=== PATIENT | female | born 1995 | race Caucasian/White ===

== ENCOUNTER → 2019-07-09 11:43 | Outpatient (CLI) | payer SELFPAY ==
--- NOTE | 2019-07-09 11:48 | US_ITS ---
STUDY: FIRST TRIMESTER OBSTETRICAL ULTRASOUND REASON FOR EXAM: Female, 23 years old EARLY PREG LMP: May 03, 2019. TECHNIQUE: Transvaginal TECHNICAL QUALITY: Adequate. PRIOR ULTRASOUND: None. FINDINGS: There is visualization of a single gestational sac in a normal intrauterine position. The mean sac diameter (MSD) measures 3.3 cm, indicating an estimated gestational age (EGA) of 9 weeks, 4 days. The gestational sac shape is within normal limits. There is a visualized yolk sac. The yolk sac measures 4 mm. The placenta is non-visualized. There is visualization of an embryo with no cardiac activity, consistent with intrauterine demise. The crown-rump length (CRL) measures 2.43 cm, indicating an estimated gestational age (EGA) of 9 weeks, 2 days. The estimated gestation age (EGA) by LMP is 9 weeks, 2 days. The estimated date of delivery (CHANEL) by LMP is February 07, 2020. The estimated gestation age (EGA) by US is 9 weeks, 0 days. The estimated date of delivery (CHANEL) by US is February 11, 2020. The uterus measures 8.5 cm x 6.6 cm x 6.5 cm. There is no demonstrated uterine fibroid. The cervix is closed. The right ovary measures 3.6 cm x 2.6 cm x 1.7 cm. There is no right ovarian cyst. There is no visualized right adnexal mass or complex lesion. The left ovary measures 3.6 cm x 2.1 cm x 2.4 cm.. There is no left ovarian cyst. There is no visualized left adnexal mass or complex lesion. There is no fluid in the cul de sac. US/Transvaginal w/Preg US IMPRESSION: demise. Electronically Signed: Angel Odom, at 13:14 EST , Service support ,
== END ==
PROVIDERS: PCP Nurse Practitioner Family; Referring Provider Obstetrics & Gynecology; Visit Provider Obstetrics & Gynecology
DX: Z34.90 Encounter for supervision of normal pregnancy, unspecified, unspecified trimester (principal)
CPT/HCPCS: 76817

== ENCOUNTER → 2021-02-01 14:40 | Outpatient (CLI) | payer SELFPAY | PROVIDERS: PCP Nurse Practitioner Family; Referring Provider Nurse Practitioner Women's Health; Visit Provider Nurse Practitioner Women's Health | DX: Z01.810 Encounter for preprocedural cardiovascular examination (principal) | CPT/HCPCS: 36415; 86850; 86900; 86901 ==

== ENCOUNTER → 2021-02-11 | Outpatient (CLI) | payer SELFPAY | END | disposition home or self-care (01) | LOC: LABSPEC 17:10 | PROVIDERS: PCP Nurse Practitioner Family; Referring Provider Obstetrics & Gynecology; Visit Provider Obstetrics & Gynecology | DX: Z34.80 Encounter for supervision of other normal pregnancy, unspecified trimester (principal) | CPT/HCPCS: 87086; 87088 ==

== ENCOUNTER → 2021-03-08 11:38 | Outpatient (CLI) | payer SELFPAY ==
[2021-03-08 11:55] LABS: Absolute Lymphocyte Count 1.47 X10^3/uL (0.83-4.51); Absolute Neutrophil Count 5.6 X10^3/uL (2.0-7.7); Basophil# 0.04 X10^3/uL; Basophil% 0.5 % (0-1); Eosinophil# 0.04 X10^3/uL; Eosinophils% 0.5 % (0-5); Hematocrit 36.7 % (37-47); Hemoglobin 12.2 g/dL (12.0-15.0); Lymphocyte # 1.47 X10^3/ul (0.83-4.51); Lymphocyte % 19.2 % (19-41); Mean Corp Hgb Conc 33.2 g/dL (32-36); Mean Corpuscular Hgb 30.2 pg (27.0-32.0); Mean Corpuscular Volume 90.8 fL (81-99); Mean Platelet Vol. 9.8 fl (6.2-12.0); Monocyte# 0.46 X10^3/uL; NRBC Flagged by Analyzer 0 % (0-5); Neutrophil # 5.62 X10^3/uL (2.7-7.7); Neutrophil % 73.5 % (47-70); Platelet Count 218 K/mm3 (150-450); RBC Distribution Width SD 39.9 fl (35.1-43.9); Red Blood Count 4.04 M/mm3 (4.2-5.4); White Blood Count 7.7 K/mm3 (4.4-11.0)
== END ==
PROVIDERS: PCP Nurse Practitioner Family; Referring Provider Obstetrics & Gynecology; Visit Provider Obstetrics & Gynecology
DX: Z34.80 Encounter for supervision of other normal pregnancy, unspecified trimester (principal)
CPT/HCPCS: 36415; 85025; 86850; 86870; 86900; 86901

== ENCOUNTER → 2021-05-10 13:54 | Outpatient (CLI) | payer SELFPAY ==
--- NOTE | 2021-05-10 13:55 | US_ITS ---
STUDY: SECOND AND THIRD TRIMESTER OBSTETRICAL ULTRASOUND REASON FOR EXAM: Female, 25 years old anatomy LMP: 12/06/2020. TECHNIQUE: Transabdominal and Transvaginal TECHNICAL QUALITY: Adequate. PRIOR ULTRASOUND: None. FINDINGS: There is a single intrauterine fetus. The fetus is in a transverse lie with the head on the maternal right side. There is demonstrated cardiac activity with a heart rate of 143 bpm. There is a normal amniotic fluid volume. The largest amniotic fluid pocket measures 4 cm x 3.7 cm. The amniotic fluid index (ALYSSA) is within normal limits. The placenta is posterior and fundal in location and is not low lying. There are Grade 0 placental changes. The cervix measures 3.5 cm in length. The bilateral adnexal regions are normal. BIOMETRY: BPD: 5.3 cm: 22 weeks, 0 days HC: 19.9 cm: 22 weeks, 0 days AC: 18.3 cm: 23 weeks, 0 days FL: 3.8 cm: 22 weeks, 0 days CI: 77% FL/BPD: 71% FL/HC: FL/AC: 21% HC/AC: 1.09 age by current US: 22 weeks, 0 days. CHANEL by current US: 09/13/2021. Estimated weight: 521 grams, +/- 78 grams, 68 %. Age by LMP: 22 weeks, 1 days. CHANEL by LMP: 09/12/2021. ANATOMY: Gender: Indeterminant Cranium: Normal lateral ventricles. Normal choroid plexus. Normal cerebellum. Normal cisterna magna. Normal face, nose and lips. Chest: Normal 4-chamber heart. Abdomen/Pelvis: Normal diaphragm. Normal stomach. Normal abdominal wall. Normal cord insertion. Normal 3 vessel cord. Normal kidneys. Normal bladder. Spine: Normal cervical spine. Normal thoracic spine. Normal lumbar spine. Normal sacrum. Extremities: Normal bilateral upper extremities. Normal bilateral lower extremities. IMPRESSION: Single live intrauterine gestation with a mean gestational age of 22 weeks. Electronically Signed: Angel Odom MD at 15:07 EST , Service support , STUDY: FIRST TRIMESTER OBSTETRICAL ULTRASOUND REASON FOR EXAM: Female, 25 years old. Cervical length measurement. LMP: 12/06/2020 TECHNIQUE: Transvaginal TECHNICAL QUALITY: Adequate. PRIOR ULTRASOUND: None. FINDINGS: Cervical length measures 3.5 cm. US/OB Anatomy Scan IMPRESSION: Cervical length measures 3.5 cm. Electronically Signed: Angel Odom MD at 15:07 EST , Service support ,
== END ==
PROVIDERS: PCP Nurse Practitioner Family; Referring Provider Nurse Practitioner Women's Health; Visit Provider Nurse Practitioner Women's Health
DX: Z36.89 Encounter for other specified antenatal screening (principal)
CPT/HCPCS: 76805; 76817

== ENCOUNTER 2021-07-01 13:14 | Outpatient (CLI) | payer SELFPAY ==
[2021-07-01 13:52] LABS: Absolute Lymphocyte Count 1.54 X10^3/uL (0.83-4.51); Absolute Neutrophil Count 7.3 X10^3/uL (2.0-7.7); Basophil# 0.03 X10^3/uL; Basophil% 0.3 % (0-1); Eosinophil# 0.06 X10^3/uL; Eosinophils% 0.6 % (0-5); Hematocrit 31.6 % (37-47); Hemoglobin 10.8 g/dL (12.0-15.0); Lymphocyte # 1.54 X10^3/ul (0.83-4.51); Mean Corp Hgb Conc 34.2 g/dL (32-36); Mean Corpuscular Volume 93.8 fL (81-99); Mean Platelet Vol. 9.6 fl (6.2-12.0); Monocyte# 0.62 X10^3/uL; Monocyte% 6.4 % (0-10); NRBC Flagged by Analyzer 0 % (0-5); Neutrophil % 75.8 % (47-70); Platelet Count 220 K/mm3 (150-450); RBC Distribution Width SD 44.1 fl (35.1-43.9); Red Blood Count 3.37 M/mm3 (4.2-5.4); White Blood Count 9.6 K/mm3 (4.4-11.0)
[2021-07-01 14:22] LABS: Glucose Challenge Gest 1H 50g 94 mg/dL (70-140)
== END 2021-07-01 23:59 | disposition short-term general hospital (02) ==
LOC: LAB 13:18
PROVIDERS: PCP Nurse Practitioner Family; Referring Provider Nurse Practitioner Women's Health; Visit Provider Nurse Practitioner Women's Health
DX: Z13.1 Encounter for screening for diabetes mellitus (principal); O99.013 Anemia complicating pregnancy, third trimester; Z3A.28 28 weeks gestation of pregnancy
CPT/HCPCS: 36415; 82950; 85025; 86850; 86900; 86901

== ENCOUNTER 2021-08-19 16:26 | Outpatient (CLI) | payer SELFPAY | END 2021-08-19 23:59 | disposition home or self-care (01) | LOC: LABSPEC 16:27 | PROVIDERS: PCP Nurse Practitioner Family; Visit Provider Obstetrics & Gynecology | DX: Z34.93 Encounter for supervision of normal pregnancy, unspecified, third trimester (principal); Z3A.35 35 weeks gestation of pregnancy | CPT/HCPCS: 87081 ==

== ENCOUNTER 2021-09-07 05:10 | Inpatient (IN) | payer SELFPAY ==
[2021-09-07] VITALS (27 sets, daily range): BP systolic 95–125; BP diastolic 42–74; PULSE 67–108; RESP 15–18; TEMP 35.6–37; O2SAT 97–100; BMI 26.5
[2021-09-07] MEDS: Lactated Ringers 1,000 ML 999 ML IV (05:30)
[2021-09-07] MEDS: Acetaminophen 500 MG Tablet 1000 MG PO ×2 (05:43→19:03)
[2021-09-07 05:58] LABS: Absolute Lymphocyte Count 1.82 X10^3/uL (0.83-4.51); Absolute Neutrophil Count 7.5 X10^3/uL (2.0-7.7); Basophil# 0.04 X10^3/uL; Basophil% 0.4 % (0-1); Eosinophil# 0.09 X10^3/uL; Eosinophils% 0.9 % (0-5); Hematocrit 32.9 % (37-47); Hemoglobin 11.1 g/dL (12.0-15.0); Lymphocyte # 1.82 X10^3/ul (0.83-4.51); Lymphocyte % 17.7 % (19-41); Mean Corp Hgb Conc 33.7 g/dL (32-36); Mean Corpuscular Volume 91.9 fL (81-99); Mean Platelet Vol. 10.3 fl (6.2-12.0); Monocyte# 0.68 X10^3/uL; Monocyte% 6.6 % (0-10); NRBC Flagged by Analyzer 0 % (0-5); Neutrophil # 7.49 X10^3/uL (2.7-7.7); Neutrophil % 72.9 % (47-70); Platelet Count 185 K/mm3 (150-450); RBC Distribution Width SD 43.1 fl (35.1-43.9); Red Blood Count 3.58 M/mm3 (4.2-5.4); White Blood Count 10.3 K/mm3 (4.4-11.0)
[2021-09-07] MEDS: Lactated Ringers 1,000 ML 150 ML IV (06:40)
[2021-09-07 07:00] LABS: Bacteria 0 SEEN /hpf (None Seen); Mucous, Urine 0 SEEN /hpf (<or=2+); Red Blood Cells-Urine 0 SEEN /hpf (0-5)
[2021-09-07] MEDS: Sodium Citrate/Citric Acid 30 ML UDC PO (07:06)
[2021-09-07 07:10] LABS: Color, Urine Yellow (Yellow); Glucose, Dipstick Normal (Normal); Ketone-Dipstick Negative (Negative); Leukocyte Esterase-Dipstick 500 /ul (Negative); Nitrite-Dipstick Negative (Negative); Occult Blood-Urine Negative /ul (Negative); Protein-Dipstick Negative (Negative); Specific Gravity, Urine 1.005 (1.002-1.030); Urine Bilirubin Dipstick Negative (Negative); Urine Clarity Clear (Clear); Urine Urobilinogen Normal (Normal)
[2021-09-07 07:20] LABS: Squamous Epithelial Cells - UA 0-5 SEEN /hpf (5-10); White Blood Cells 0-5 SEEN /hpf (0-5)
--- NOTE | 2021-09-07 07:25 | HP.PCM.OB_ITS ---
HPI - General General Date of Admission: 09/07/21 HPI Narrative TUSHAR ALVAREZ, is a 25 y/o @ 39 weeks 2 days who presents for a repeat section Maternal Data Information CHANEL Calculator Estimated Delivery Date Method Current WG Current Estimate 09/12/21 LMP (Certain) 39w 2d PFSH PFSH Medical History Missed Home Medications multivitamin no.47-iron fum 27 mg-folate no.1 1 mg-dha 300 mg capsule 1 cap PO DAILY 01/27/21 [History Last Taken 09/06/21] Allergy/AdvReac Type Severity Reaction Status Date / Time No Known Allergies Allergy Verified 09/02/21 13:37 Surgical History H/O section Social History adopted: No household members: family housing: house number of children: 1 history of recent travel: No sexually active: Yes Smoking Status: Never smoker second hand exposure: No alcohol intake: never substance use type: does not use seatbelt use: always do you feel safe at home: Yes additional social history: - Kareem History 3 Elective abortions Hx Para 1 Spontaneous abortions 1 Hx # Term Pregnancies Ectopic pregnancies Hx # Pregnancies Multiple births # of living children 1 Past Pregnancies Del. Date Name GA/Weeks Outcome Route Bth Weight Gen Labor Lgth Anesthesia Del Locatn Provider FOB 11/13/17 Pham 40 live - full term 8lbs 1.5oz [place] [facility] [place]: 11/13/17 failed VAVD, decels CPD Brianna Overton Visit Details Expected Delivery Route/Plan plan RLTCS with SM Plans Covid status: counseled regarding risk of covid in vs vaccination and declined vaccination Flu vaccine: declined Tdap vaccine: declined Rhogam: given 2/4 LARC form signed: [] movement and labor precautions reviewed. Problem list reviewed and updated with the most current plan of care details and appropriate orders placed. Relevant counseling for the gestational age provided. Continue routine care and follow up unless otherwise noted in visit notes/problem list details OB Flowsheet Initial Weight: 122 lb Date -?-?-?-?-?-?-?-?-?-?-?-?- EGA Weight BP Urine Prot -?-?-?-?-?-?-?-?-?-?-?-?- Glucose FHR FuHt Pres Dilation -?-?-?-?-?-?-?-?-?-?-?-?- Effaced St Visit Note 02/11/21 -?-?-?-?-?-?-?-?-?-?-?-?- 9w 4d 122 lb (+0 oz) 102/64 -?-?-?-?-?-?-?-?-?-?-?--?- 190 -?-?-?-?-?-?-?-?-?-?-?-?- SM- no vb crampi ng, resolved last week. 03/08/21 -?-?-?-?-?-?-?-?-?-?-?-?- 13w 1d 120/82 -?-?-?-?-?-?-?-?-?-?-?-?- 175 -?-?-?-?-?-?-?-?-?-?-?-?- SM- no vb crampi ng doing well 04/05/21 -?-?-?-?-?-?-?-?-?-?-?-?- 17w 1d 127 lb (+5 lb) 114/78 Negative -?-?-?-?-?-?-?-?-?-?-?-?- Negative 157 -?-?-?-?-?-?-?-?-?-?-?-?- MH-No VB, LOF. A natomy [facility] [place] ordered 05/10/21 -?-?-?-?-?-?-?-?-?-?-?-?- 22w 1d 130 lb 4 oz (+8 lb 4 oz) 104/62 Negative -?-?-?-?-?-?-?-?-?-?-?-?- Negative 151 -?-?-?-?-?-?-?-?-?-?-?-?- -No Vb, LOF. G ood FM. Had anatomy US today. 07/01/21 -?-?-?-?-?-?-?-?-?-?-?-?- 29w 4d 140 lb 2 oz (+18 lb 2 oz) 130/70 Negative -?-?-?-?-?-?-?-?-?-?-?-?- Negative 1 -?-?-?-?-?-?-?-?-?-?-?-?- SM- no vb lof go od fm no regular ctx 07/22/21 -?-?-?-?-?-?-?-?-?-?-?-?- 32w 4d 145 lb 2 oz (+23 lb 2 oz) 112/62 Negative -?-?-?-?-?-?-?-?-?-?-?-?- Negative 143 30 -?-?-?-?-?-?-?-?-?-?-?-?- JV- no lof, vagi nal bleeding or dec fm. plan for 39 week IOL on september 07 at 7:30. 08/05/21 -?-?-?-?-?-?-?-?-?-?-?-?- 34w 4d 148 lb 4 oz (+26 lb 4 oz) 116/60 Negative -?-?-?-?-?-?-?-?-?-?-?-?- Negative 145 33 -?-?-?-?-?-?-?-?-?-?-?-?- JV- no lof, vagi nal bleeding, or dec fm -- ABOVE NOTE INCORRECT. PLANNING FOR REPEAT SECTION NOT IOL. 08/12/21 -?-?-?-?-?-?-?-?-?-?-?-?- 35w 4d 148 lb 8 oz (+26 lb 8 oz) 110/66 Negative -?-?-?-?-?-?-?-?-?-?-?-?- Negative 160 36 -?-?-?-?-?-?-?-?-?-?-?-?- JV- no complaint s today. no lof, vaginal bleeding, or dec fm. Plan for rpt section 08/19/21 -?-?-?-?-?-?-?-?-?-?-?-?- 36w 4d 151 lb 4 oz (+29 lb 4 oz) 106/64 Negative -?-?-?-?-?-?-?-?-?-?-?-?- Negative 135 37 1 -?-?-?-?-?-?-?-?-?-?-?-?- 70 -2 SM- no vb lof good fm no reuglar ctx 08/26/21 -?-?-?-?-?-?-?-?-?-?-?-?- 37w 4d 153 lb (+31 lb) 110/88 Negative -?-?-?-?-?-?-?-?-?-?-?-?- Negative 145 38 -?-?-?-?-?-?-?-?-?-?-?-?- JV- no lof ,vagi nal bleeding or dec fm. declines pelvic exam. 09/02/21 -?-?-?-?-?-?-?-?-?-?-?-?- 38w 4d 155 lb 6 oz (+33 lb 6 oz) 118/68 Negative -?-?-?-?-?-?-?-?-?-?-?-?- Negative 140 38 -?-?-?-?-?-?-?-?-?-?-?-?- JV- no lof, vagi nal bleeding, or dec fm. rpt section on sunday09/07/21 -?-?-?-?-?-?-?-?-?-?-?-?- 39w 2d 154 lb 12.232 oz (+32 lb 12.232 oz) 119/74 119/74 Negative mg/dl (Nega tive) -?-?-?-?-?-?-?-?-?-?-?-?- -?-?-?-?-?-?-?-?-?-?-?-?- ROS Constitutional Constitutional: Denies change in weight, fatigue, fever(s), headache(s), poor appetite or weakness Eyes Eyes: Denies blurry vision, change in vision, seeing flashes or spots in vision ENT HEENT: Denies dizziness, headache(s), loss taste/smell or sore throat Cardiovascular Cardiovascular: Denies chest pain, dizziness, dyspnea, irregular heart rhythm, leg edema, palpitations, rapid heart rate or vomiting Respiratory/Chest Respiratory/Chest: Denies chest tightness, cough, dyspnea or breast pain Gastrointestinal Gastrointestinal: Denies abdominal pain, anorexia, constipation, cramping, diarrhea, hemorrhoids, vomiting or weight changes Genitourinary Genitourinary: Denies dysuria, flank pain, genital lesions, genital pain, urinary frequency or urinary urgency Musculoskeletal Musculoskeletal: Denies back pain, difficulty walking, joint pain, limited range of motion, muscle cramps or numbness Integumentary Integumentary: Denies lesions or unusual bruising Neurologic Neurologic: Denies abnormal movements, abnormal speech, dizziness, numbness, seizure-like activity or syncope Psychiatric Psychiatric: Denies anxiety, behavioral changes, change in appetite, change in libido, cognitive impairment, confusion, depression, difficulty concentrating, hallucinations or suicidal thoughts Endocrine Endocrinology: Denies excessive sweating, polydipsia or polyuria Hematologic/Lymphatic Hematologic/Lymphatic: Denies easy bleeding, easy bruising or lymphadenopathy Allergic/Immunologic Allergic/Immunologic: Denies itchy eyes, lip swelling, seasonal rhinorrhea, rhinitis, throat swelling, tongue swelling, eczemia, wheezing or asthma Vital Signs Vital Signs Vital Signs: 09/07/21 05:27 09/07/21 05:48 Temperature 97.3 F L 97.3 F L Temperature Source Temporal Temporal Pulse Rate 105 H 105 H Respiratory Rate 18 Blood Pressure 119/74 119/74 Blood Pressure Mean 89 BP Systolic 119 BP Diastolic 74 Blood Pressure Source Monitor Blood Pressure Position Semi-Fowlers Blood Pressure Location Left Arm Pulse Ox 100 100 Oxygen Delivery Method Room Air Weight Weight: 154 lb 12.232 oz Body Mass Index (BMI) 26.5 Physical Exam Const alert, oriented x3, no apparent distress and healthy appearing General Appearance: cooperative; Negative for anxious HEENT normocephalic Face and Sinus: normal facial exam Eyes EOMs intact bilaterally and no scleral icterus General Eye: normal appearance of both eyes Neck full ROM and supple Lymph Lymphatic: no lymphadenopathy noted Chest Chest: abnormal inspection of the chest Resp normal respiratory effort Effort and Inspection: able to speak in complete sentences Cardio regular rate GI soft to palpation and non-tender Inspection: gravid Palpation: soft; Negative for tender external exam normal Back/Spine no CVA tenderness Extremity normal to inspection, full ROM and no clubbing, cyanosis or edema General Extremity: Negative for calf tenderness or edema Skin Lesions: no lesions Rashes: no rashes Psych mental status grossly normal Labs Labs Labs: Blood Type AB NEGATIVE Antibody Screen NEGATIVE Hct 32.9 % (37-47) L Hgb 11.1 g/dL (12.0-15.0) L Obstetrics US Syphilis Total Ab Pending Rubella IgG Antibody Pending Hep Bs Antigen Pending HIV 1&2 Antibody Pending Glucose 1 Hr 50 gm 94 mg/dL (70-140) Assessment & Plan (1) Anemia affecting in third trimester: COMMENT: iron, repeat CBC PRN (2) Rh negative state in antepartum period: COMMENT: Rhogam PRN and at 28 weeks (rhogam was not given with previous miscarriage). Given 07/01/21 (3) Supervision of other normal : COMMENT: PRR(sp labs) CHANEL: 09/12/21 PC: Pham Spouse: Kareem gbs negative (4) : QUALIFIERS: Weeks of gestation: 38 weeks Qualified Code(s): Z3A.38 - 38 weeks gestation of COMMENT: declines carrier, genetic and NTD. SP labs, will draw rest at delivery. NL anatomy (5) H/O section: COMMENT: 2017 failure to descend, pushing x7 hrs, failed vacuum attempt with a popoff and FHR decel. [facility] scheduled 09/07 @ 7:30am PLAN: plan for repeat section today.
[2021-09-07] MEDS: Cefazolin 2 GM in 0.9% Normal Saline 100 ML IV (07:28)
[2021-09-07 07:29] LABS: Amphetamine Urine VISTA NEGATIVE (<1000 ng/mL); Barbiturate Urine VISTA NEGATIVE (< 200 ng/mL); Benzodiazepine Urine VISTA NEGATIVE (< 200 ng/mL); Cocaine Urine VISTA NEGATIVE (< 300 ng/mL); Ecstacy Urine VISTA NEGATIVE (< 500 ng/mL); Methadone Urine VISTA NEGATIVE (< 300 ng/mL); PCP Urine VISTA NEGATIVE (< 25 ng/mL); THC Urine VISTA NEGATIVE (< 50 ng/mL); Vista UDS pH Range 6
--- NOTE | 2021-09-07 07:29 | PCM.DC ---
Discharge Instructions Diet Discharge Diet: No restrictions Activity Discharge Activity: May Not Drive (for 2 weeks or while taking narcotic pain medications.), May Shower and May Take a Tub Bath (in 7 days.) May resume sexual activity in: 4-6 weeks Weight Bearing Status: Full weight bearing Lifting Restrictions: 20 pounds Dressing / Incision Call your doctor if your incision/area has: Continuous Slow Oozing, Sudden Increased Bleeding, Increased Pain/ Swelling, Increased Redness and Foul Smelling Discharge Call your doctor if you observe: Fever of 101 or Higher and Using more than 1 pad per hour Suture Line Care: Avoid Pulling/Pushing and Avoid Pinching/Bending Cleanse incision/area with: Soap & Water and Keep Dressing Clean & Dry Follow Up Care Please Follow Up With: Donna Rogers DO When: Call [phone] to make an appointment for an incision check in 1-2 weeks. Test Results: Test results from this visit will be discussed in further detail at your follow-up appointment, if applicable. Discharge Plan Admission Admit Date/Time: 09/07/21 05:10 Primary Reason for Your Visit: section Attending Provider: Donna Rogers Primary Care Provider: Andria Santos NP Discharge Orders/Prescriptions Prescriptions: New ibuprofen 600 mg tablet 600 mg PO Q6H PRN (Reason: pain (scale score 4-6)) 7 Days Qty: 28 RF: 0 oxycodone-acetaminophen [Percocet] 5-325 mg tablet 1 tab PO Q4H PRN (Reason: pain) 7 Days Qty: 30 RF: 0 Continued PNV-DHA 27 mg iron-1 mg -300 mg capsule 1 cap PO DAILY RF: 0 Referrals / Follow Up: Andria Santos NP, [facility] [Primary Care Provider] - Disposition Disposition (needs filled in before D/C Order can be placed): Home, Self Care
--- NOTE | 2021-09-07 08:19 | EX.PCM.OBRPT ---
Maternal Data Information CHANEL Calculator Estimated Delivery Date Method Current WG Current Estimate 09/12/21 LMP (Certain) 39w 2d Details Operative Information Date of Procedure: 09/07/21 Pre-Operative Diagnosis: 39 weeks , prior section, declines Post-Operative Diagnosis: 39 weeks , prior section, declines Indications for : Repeat Elective Classification: Scheduled Procedure Type: low transverse billboard mechanic #1: Dm Arango Type of Anesthesia: Spinal Anesthesiologist: Santino Quintana Antibiotic Given: Ancef 2 grams IV x1 Drain: Cordova to straight drain Estimated Blood Loss: 300cc Findings Description of Procedure: The patient is a 25 y/o @ 39 weeks 2 days who presented for repeat . Spinal anesthesia was placed without difficulty. Cordova catheter was placed. The patient was placed in the dorsal supine position with leftward tilt. Patient was prepped and draped in the normal sterile fashion. Pfannenstiel skin incision was made with the scalpel and carried through to the underlying layer of fascia with the scalpel. Fascia was nicked in the midline and the incision extended laterally. The rectus bellies were dissected off superiorly and inferiorly with out complication both sharply and bluntly. The peritoneum was entered digitally. The incision was stretched and a low transverse uterine incision was made with the scalpel. The infant's head was delivered atraumatically followed by the anterior and posterior shoulders without complication the rest of the delivered. The cord was clamped and cut and the infant was handed off to awaiting nurse. The placenta was delivered spontaneously immediately following and was noted to be intact and have a three-vessel cord. The uterus was exteriorized cleared of all clots and debris, and the incision was closed in a double layer closure using #1 Vicryl and #1 Monocryl. The ovaries and fallopian tubes were noted to be within normal limits. The uterus was returned to the maternal abdomen and gutters were cleared of all clots and debris. The peritoneum was closed with 3-0 Monocryl in a running fashion. Gloves were changed prior to subcutaneous tissue closure. Fascia was closed with 0 PDS in a running fashion. Subcutaneous tissue was copiously irrigated and the skin was closed with 3-0 Monocryl in a subcuticular fashion. Mepilex dressing was applied without complication. Patient was taken to recovery in stable condition. It was discussed with the patient that based on the clinical information obtained during this encounter, combined with her history, at this time I would recommend repeat sections for future deliveries if further pregnancies are desired. Presentation: Positive for Vertex Amniotic Fluid Description: Clear Placental Delivery Description: Manual Removal Placenta Disposition: [facility] Cord Vessel Description: 3 Vessels Cord Entanglement: None Infant A Gender: Male (1 minute): 9 (5 minute): 10 Delayed Cord Clamping: Yes Complications Risks of Surgery Discussed w/Patient: Bleeding, Anesthesia Risks, Infection and Need for Future C-Sections Complications: none Multi Select Codes Urinary/Genital Urinary/Genital CPT Codes: 01047 Delivery [facility]
[2021-09-07] MEDS: Oxytocin 30 units/NS 500 ml 30 UNITS/500 ML IV.SOLN 167 UNITS IV (08:30)
[2021-09-07] MEDS: Ketorolac 30 MG/ML Syringe IV ×3 (09:05→20:59)
[2021-09-07 09:17] LABS: Chlamydia Trachomatis by PCR Negative (Negative); Neisserai gonorrhoeae by PCR Negative (Negative)
[2021-09-07 09:18] LABS: Probe Check PASS; Sample Adequacy Control PASS; Specimen Processing Control PASS
[2021-09-07 09:40] LABS: Rubella IgG Reactive (Nonreactive); Syphilis Antibodies Non-reactive
[2021-09-07 09:51] LABS: HIV - WCH Non-Reactive (Nonreactive); Hepatitis B Surface Antigen Non-Reactive (Nonreactive); Hepatitis C Antibody Non-Reactive (Nonreactive)
[2021-09-07] MEDS: Ondansetron 4 MG/2 ML Vial IV ×2 (10:40→15:35)
[2021-09-07] MEDS: proCHLORPERazine 10 MG/2 ML Vial IV (13:33)
[2021-09-07] MEDS: Lactated Ringers 1,000 ML 100 ML IV (14:07)
--- NOTE | 2021-09-07 16:00 | NURSING ---
Pt very nauseous and not able to ambulate to chair at this time. Will monitor for appropriate time where patient can safely get up to the chair.
[2021-09-07 16:39] LABS: Absolute Lymphocyte Count 1.13 X10^3/uL (0.83-4.51); Absolute Neutrophil Count 14.2 X10^3/uL (2.0-7.7); Basophil# 0.04 X10^3/uL; Basophil% 0.2 % (0-1); Eosinophil# 0.01 X10^3/uL; Eosinophils% 0.1 % (0-5); Hematocrit 31.8 % (37-47); Hemoglobin 10.7 g/dL (12.0-15.0); Lymphocyte # 1.13 X10^3/ul (0.83-4.51); Lymphocyte % 6.8 % (19-41); Mean Corp Hgb Conc 33.6 g/dL (32-36); Mean Corpuscular Hgb 31.3 pg (27.0-32.0); Mean Platelet Vol. 10.3 fl (6.2-12.0); Monocyte# 1.16 X10^3/uL; NRBC Flagged by Analyzer 0 % (0-5); Neutrophil # 14.18 X10^3/uL (2.7-7.7); Neutrophil % 85.1 % (47-70); Platelet Count 173 K/mm3 (150-450); RBC Distribution Width CV 13.2 % (11.6-14.6); RBC Distribution Width SD 44.3 fl (35.1-43.9); Red Blood Count 3.42 M/mm3 (4.2-5.4); White Blood Count 16.7 K/mm3 (4.4-11.0)
[2021-09-07] MEDS: Scopolamine 1mg/72hr Patch 1 PATCH TD (16:51)
[2021-09-07] MEDS: oxyCODONE 5 MG Tablet PO (17:04)
[2021-09-07] MEDS: Lactated Ringers 1,000 ML 200 ML IV (17:40)
[2021-09-07] MEDS: Enoxaparin 40 MG/0.4 ML Syringe SC (19:03)
[2021-09-08] VITALS (8 sets, daily range): BP systolic 105–120; BP diastolic 45–63; PULSE 79–100; RESP 16–18; TEMP 36.4–36.7; O2SAT 96–99
[2021-09-08] MEDS: Acetaminophen 500 MG Tablet 1000 MG PO ×3 (00:51→14:14)
[2021-09-08] MEDS: Ketorolac 30 MG/ML Syringe IV (03:46)
[2021-09-08] MEDS: 0.9% Saline Lock 10 ML Syringe IV (03:46)
[2021-09-08 06:30] LABS: Hematocrit 26.7 % (37-47); Mean Corp Hgb Conc 33.7 g/dL (32-36); Mean Corpuscular Hgb 31.7 pg (27.0-32.0); Mean Platelet Vol. 9.9 fl (6.2-12.0); Platelet Count 158 K/mm3 (150-450); RBC Distribution Width CV 13.2 % (11.6-14.6); RBC Distribution Width SD 44.9 fl (35.1-43.9); Red Blood Count 2.84 M/mm3 (4.2-5.4); White Blood Count 10.7 K/mm3 (4.4-11.0)
--- NOTE | 2021-09-08 06:37 | PN.OBGYN_ITS ---
Subjective Subjective Patient doing well without complaints. Tolerating PO. Ambulating and voiding without difficulty. feeding well. Denies chest pain, shortness of breath, calf pain/swelling, fevers, chills, lightheadedness. Objective Data Objective Data Vital Signs: Vital Signs Temp Pulse Resp BP Pulse Ox 98.1 F 100 18 107/45 L 98 09/08/21 04:00 09/08/21 06:22 09/08/21 06:22 09/08/21 04:00 09/08/21 06:22 Oxygen Delivery Method Room Air Weight: 154 lb 12.232 oz Body Mass Index (BMI) 26.5 Intake & Output: Intake and Output for Last 24 Hours 09/06/21 09/07/21 09/08/21 23:59 23:59 23:59 Intake Total 5135.78 / 5135.78 Output Total 1700 / 1700 650 / 650 Balance 3435.78 / 3435.78 -650 / -650 Lab / Micro Data Result Diagrams: 09/08/21 06:20 Labs: Laboratory Results - last 24 hr 09/07/21 05:30: Syphilis Total Ab Non-reactive, Rubella IgG Antibody Reactive 09/07/21 05:30: Blood Type AB NEGATIVE, Antibody Screen NEGATIVE 09/07/21 05:30: Hep Bs Antigen Non-Reactive, Hepatitis C Antibody Non-Reactive, HIV 1&2 Antibody Non-Reactive 09/07/21 06:50: Urine Color Yellow, Urine Clarity Clear, Urine pH 7.0, Ur Specific [place] 1.005, Urine Protein Negative, Urine Glucose (UA) Normal, Urine Ketones Negative, Urine Occult Blood Negative, Urine Nitrite Negative, Urine Bilirubin Negative, Urine Urobilinogen Normal, Ur Leukocyte Esterase 500 H, Urine RBC 0 SEEN, Urine WBC 0-5 SEEN, Ur Squamous Epith Cells 0-5 SEEN, Urine Bacteria 0 SEEN, Urine Mucus 0 SEEN 09/07/21 06:50: Chlam trachomat DNA PCR Negative, N.gonorrhoeae DNA (PCR) Negative 09/07/21 06:50: Urine Opiates Screen NEGATIVE, Urine Methadone Screen NEGATIVE, Ur Barbiturates Screen NEGATIVE, Ur Phencyclidine Scrn NEGATIVE, Ur Amphetamines Screen NEGATIVE, MDMA (Ecstasy) Screen NEGATIVE, U Benzodiazepines Scrn NEGATIVE, Urine Cocaine Screen NEGATIVE, U Cannabinoids Screen NEGATIVE, Ur Drug Screen Comment 09/07/21 11:05: Screen POSITIVE H, Baby's Blood Type A POSITIVE, Baby's MARILEE NEGATIVE 09/07/21 11:05: Kerrie Rose Hgb Cancelled 09/07/21 15:45: WBC 16.7 H, RBC 3.42 L, Hgb 10.7 L, Hct 31.8 L, MCV 93.0, MCH 31.3, MCHC 33.6, RDW Std Deviation 44.3 H, RDW Coeff of Farhana 13.2, Plt Count 173, MPV 10.3, Immature Gran % (Auto) 0.800, Neut % (Auto) 85.1 H, Lymph % (Auto) 6.8 L, Jackson % (Auto) 7.0, Eos % (Auto) 0.1, Baso % (Auto) 0.2, Absolute Neuts (auto) 14.2 H, Absolute Lymphs (auto) 1.13, Nucleated RBC % 0 09/07/21 : Kerrie Rose Hgb Cancelled 09/08/21 06:20: WBC 10.7, RBC 2.84 L, Hgb 9.0 L, Hct 26.7 L, MCV 94.0, MCH 31.7, MCHC 33.7, RDW Std Deviation 44.9 H, RDW Coeff of Farhana 13.2, Plt Count 158, MPV 9.9 Micro: Microbiology 09/07/21 05:10 Nasal Secretion SARS-CoV-2 Antigen (Rapid) - Final ROS Constitutional Constitutional: Reports systems reviewed and no addt'l complaints, except as documented Cardiovascular Cardiovascular: Reports systems reviewed and no addt'l complaints, except as documented Respiratory/Chest Respiratory/Chest: Reports systems reviewed and no addt'l complaints, except as documented Gastrointestinal Gastrointestinal: Reports systems reviewed and no addt'l complaints, except as documented Physical Exam Const alert, oriented x3 and no apparent distress HEENT Head and Scalp: atraumatic Resp normal respiratory effort GI soft to palpation and non-tender Inspection: incision intact, healing well and drainage (none) Bimanual Exam - Vag & Uterus: uterus non-tender Uterus Palpation: uterus fundus firm (below Umbilicus) Assessment & Plan (1) Status post section: COMMENT: RABIA- 09/07/21 (2) Rh negative state in antepartum period: COMMENT: Rhogam PRN and at 28 weeks (rhogam was not given with previous miscarriage). Given 07/01/21 (3) Anemia affecting in third trimester: COMMENT: iron, repeat CBC PRN PLAN: s/p LTCS PPD # 1 1. routine post care 2. breast feeding- support given 3. rh negative- rhogam PRN 4. rubella immune
[2021-09-08] MEDS: Enoxaparin 40 MG/0.4 ML Syringe SC (09:32)
[2021-09-08] MEDS: Senna/Docusate Sodium 1 Tablet PO (09:32)
[2021-09-08] MEDS: Ibuprofen 600 MG Tablet PO ×2 (09:32→15:40)
[2021-09-08 10:37] LABS: Kleihauer-Betke POSITIVE
== END 2021-09-08 18:35 | disposition home or self-care (01) | DRG 788 ==
PROVIDERS: Admitting Provider Obstetrics & Gynecology; PCP Nurse Practitioner Family; Referring Provider Obstetrics & Gynecology; Visit Provider Obstetrics & Gynecology
PROC: 10D00Z1 Extraction of Products of Conception, Low, Open Approach (ICD-10-PCS; CPT 59514; principal; 2021-09-07 07:15)
DX: O34.211 Maternal care for low transverse scar from previous cesarean delivery (principal); O26.893 Other specified pregnancy related conditions, third trimester; O99.02 Anemia complicating childbirth; Z67.31 Type AB blood, Rh negative; Z3A.38 38 weeks gestation of pregnancy; Z37.0 Single live birth; Z28.310 Unvaccinated for COVID-19; Z28.21 Immunization not carried out because of patient refusal; Z87.59 Personal history of other complications of pregnancy, childbirth and the puerperium
CPT/HCPCS: 59050; 80307; 81001; 85025; 85027; 85460; 85461; 86703; 86762; 86780; 86803; 86850; 86900; 86901; 87086; 87340; 87426; 87491; 87591; 90384; 99218; 99251; J7120; A4216; G0378; G0463; J2405; J2790